=== PATIENT | male | born 1965 | race Caucasian/White ===

== ENCOUNTER → 2017-01-30 | Outpatient (CLI) | payer OTHER ==
[~2017-01-30] MED LIST: MULTIPLE VITAMI1 CAP PO; NO HOME MEDICATIONS; NORCO 325 MG-51 TAB PO
== END ==
LOC: COL.RAD 11:15
DX: R59.1 Generalized enlarged lymph nodes (principal)
CPT/HCPCS: Q9967

== ENCOUNTER → 2017-02-07 | Outpatient (CLI) | payer OTHER ==
[~2017-02-07] VITALS: Ht 170.2 cm; Wt 52.3 kg
[2017-02-07 12:11] VITALS: BP 112/77; PULSE 77
[2017-02-07 13:30] VITALS: BP 94/60; PULSE 64
[2017-02-07 13:45] VITALS: BP 96/74; PULSE 58
== END ==
LOC: COL.RAD 11:47
DX: R59.1 Generalized enlarged lymph nodes (principal)

== ENCOUNTER 2017-02-28 06:48 | Day surgery (SDC) | payer OTHER ==
[~2017-02-28] VITALS: Ht 170.2 cm; Wt 51.4 kg
[2017-02-28 07:40] VITALS: BP 119/69; PULSE 80; TEMP 97.8
[2017-02-28] MEDS ORDERED: NORCO 325 MG-51 TAB PO (07:54)
[2017-02-28] MEDS ORDERED: AMBIEN 10MG10 MG PO (07:55)
[2017-02-28 09:20] VITALS: BP 106/77; PULSE 73
[2017-02-28 09:35] VITALS: BP 107/75; PULSE 65
[2017-02-28 09:45] VITALS: BP 124/80; PULSE 70
== END 2017-02-28 10:30 | disposition home or self-care (01) ==
LOC: SDCO 06:48
DX: C85.18 Unspecified B-cell lymphoma, lymph nodes of multiple sites (principal); F17.210 Nicotine dependence, cigarettes, uncomplicated
CPT/HCPCS: C1788; J0690; J1644; J2250; J2405; J2704; J3010; J7120

== ENCOUNTER 2017-03-27 19:18 | Inpatient (IN) | payer BC ==
[~2017-03-27] VITALS: Ht 170.2 cm; Wt 48.9 kg
[~2017-03-27 19:18] MED LIST changes: +AMBIEN 10MG10 MG PO
[2017-03-27 20:16] LABS: HEMATOCRIT 38.8 % (42.0-52.0); HEMOGLOBIN 13.4 g/dl (13.5-18.0); MEAN CELL VOLUME 88 fl (80.0-100.0); MEAN CORPUSCULAR HEMOGLOBIN 31 pg (27.0-31.0); MEAN CORPUSCULAR HGB CONC 35 g/dl (33.0-37.0); MEAN PLATELET VOLUME 12.6 fl (7.4-10.4); RED BLOOD COUNT 4.39 M/mm3 (4.20-5.60)
[2017-03-27 20:17] LABS: PLATELET COUNT 40 K/mm3 (130-400)
[2017-03-27 20:18] LABS: ADD PATHOLOGY DIFF REVIEW NO
[2017-03-27 20:26] LABS: ADJUSTED CALCIUM 8.9 mg/dL (8.4-10.2); ALANINE AMINOTRANSFERASE 31 U/L (21-72); ALBUMIN 3.4 gm/dL (3.5-5.0); ALKALINE PHOSPHATASE 67 U/L (50-136); ANION GAP 9 mmol/L (7-16); BLOOD UREA NITROGEN 27 mg/dL (9-20); C-REACTIVE PROTEIN 8.4 mg/dL (0.0-0.9); CALCIUM 8.4 mg/dL (8.4-10.2); CARBON DIOXIDE 29 mmol/L (22-30); CHLORIDE 95 mmol/L (98-107); GLUCOSE 297 mg/dL (74-106); POTASSIUM 4.5 mmol/L (3.4-5.0); SODIUM 133 mmol/L (137-145); TOTAL PROTEIN 5.9 gm/dL (6.4-8.2)
[2017-03-27 20:27] LABS: BAND 4 % (0-10); NEUTROPHILS 12 % (42.0-75.2); PLATELET ESTIMATE DECREASED (NORMAL)
[2017-03-27 20:37] LABS: TROPONIN-I < 0.012 ng/mL (0.000-0.034)
[2017-03-27 20:44] LABS: ARTERIAL BLOOD GAS BASE EXCESS 0.8 (-2-2); ARTERIAL BLOOD GAS HCO3 22.2 meq/L (22-26); ARTERIAL BLOOD GAS pH 7.55 (7.35-7.45); OXYHEMOGLOBIN 96.7 %
[2017-03-27 20:45] LABS: ALLEN TEST YES; ALLENS TEST RESULT PASS; ARTERIAL BLOOD GAS PO2 136.4 mmHg (80-100); ATS? YES
[2017-03-27 20:53] LABS: COLLECTION METHOD CLEAN CATCH
[2017-03-27 21:01] LABS: PH 6 (5-8); SQUAMOUS EPITHELIAL None Seen /hpf; URINE APPEARANCE Clear; URINE BACTERIA None Seen /hpf; URINE BILIRUBIN Negative (NEGATIVE); URINE BLOOD 1+ (NEGATIVE); URINE COLOR Yellow; URINE GLUCOSE 3+ (NEGATIVE); URINE KETONE Negative (NEGATIVE); URINE LEUKOCYTE ESTERASE Negative (NEGATIVE); URINE PROTEIN(semi-quant) Negative (NEGATIVE); URINE WBC 0-2 /hpf
[2017-03-27] MEDS ORDERED: ZOVIRAX400 MG PO (21:25)
[2017-03-27] MEDS ORDERED: ZYLOPRIM 300MG300 MG PO (21:26)
[2017-03-27] MEDS ORDERED: COMPAZINE 110 MG/TAB PO (21:26)
[2017-03-27] MEDS ORDERED: LEVAQUIN 5500 MG/TA1 PO (21:26)
[2017-03-27] MEDS ORDERED: MIRALAX PA17 GM/Dose PO (21:27)
[2017-03-27] MEDS ORDERED: MAGIC MOUTH PO (21:28)
[2017-03-27] MEDS ORDERED: PERCOCET 325 MG1 TA2 PO (21:28)
[2017-03-27 23:28] VITALS: BP 116/79; PULSE 80; TEMP 99.3
[2017-03-28] VITALS (7 sets, daily range): BP systolic 98–114; BP diastolic 61–76; PULSE 79–93; TEMP 98.7–100
[2017-03-28 00:16] LABS: BASO % 1.5 % (0.0-2.0); EOS % 3.1 % (0-4.0); GRAN # 0.4 (1.4-6.5); GRAN % 33.8 % (42.2-75.2); HEMATOCRIT 34.8 % (42.0-52.0); HEMOGLOBIN 11.9 g/dl (13.5-18.0); LYMPH # 0.6 (1.2-3.4); LYMPH % 45.4 % (20.0-51.0); MEAN CELL VOLUME 88 fl (80.0-100.0); MEAN CORPUSCULAR HEMOGLOBIN 30 pg (27.0-31.0); MEAN CORPUSCULAR HGB CONC 34 g/dl (33.0-37.0); MONO # 0.2 (0.1-0.6); MONO % 15.4 % (1.7-9.3); RED BLOOD COUNT 3.94 M/mm3 (4.20-5.60)
[2017-03-28 00:17] LABS: PLATELET COUNT 37 K/mm3 (130-400); WHITE BLOOD COUNT 1.3 K/mm3 (4.8-10.8)
[2017-03-28 00:21] LABS: LYMPHOCYTE 60 % (20.0-51.0); TOTAL CELLS COUNTED 25
[2017-03-28 00:32] LABS: INR 1.2 (0.8-3.0); PROTHROMBIN TIME 13.5 SECONDS (9.7-12.8)
[2017-03-28 00:34] LABS: PARTIAL THROMBOPLASTIN TIME 32.9 SECONDS (26.0-37.0)
[2017-03-28 05:46] LABS: MEAN CELL VOLUME 89 fl (80.0-100.0); MEAN CORPUSCULAR HGB CONC 34 g/dl (33.0-37.0); MEAN PLATELET VOLUME 12.9 fl (7.4-10.4); RED BLOOD COUNT 3.61 M/mm3 (4.20-5.60)
[2017-03-28 05:53] LABS: ADJUSTED CALCIUM 8.4 mg/dL (8.4-10.2); ALBUMIN 2.5 gm/dL (3.5-5.0); BILIRUBIN,TOTAL 0.6 mg/dL (0.0-1.0); CALCIUM 7.2 mg/dL (8.4-10.2); POTASSIUM 4.2 mmol/L (3.4-5.0); TOTAL PROTEIN 4.9 gm/dL (6.4-8.2)
[2017-03-28 05:55] LABS: ADD PATHOLOGY DIFF REVIEW NO; HEMATOCRIT 32.2 % (42.0-52.0); MEAN CORPUSCULAR HEMOGLOBIN 30 pg (27.0-31.0); PLATELET COUNT 33 K/mm3 (130-400); WHITE BLOOD COUNT 1.9 K/mm3 (4.8-10.8)
[2017-03-28 06:23] LABS: BAND 26 % (0-10); BASOPHIL 2 % (0-2); DOHLE BODIES PRESENT; EOSINOPHIL 10 % (0-4); LYMPHOCYTE 36 % (20.0-51.0); NEUTROPHILS 14 % (42.0-75.2); TOTAL CELLS COUNTED 100; TOXIC GRANULATION PRESENT
[2017-03-28 06:24] LABS: PLATELET ESTIMATE DECREASED (NORMAL)
[2017-03-29] VITALS (8 sets, daily range): BP systolic 91–119; BP diastolic 52–75; PULSE 78–86; TEMP 97.6–100.3
[2017-03-29 07:56] LABS: MEAN CELL VOLUME 91 fl (80.0-100.0); MEAN CORPUSCULAR HGB CONC 33 g/dl (33.0-37.0); MEAN PLATELET VOLUME 12.7 fl (7.4-10.4); PLATELET COUNT 51 K/mm3 (130-400); RED BLOOD COUNT 3.87 M/mm3 (4.20-5.60); WHITE BLOOD COUNT 10.2 K/mm3 (4.8-10.8)
[2017-03-29 08:00] LABS: ADJUSTED CALCIUM 9.1 mg/dL (8.4-10.2); ALBUMIN 2.5 gm/dL (3.5-5.0); BILIRUBIN,TOTAL 0.5 mg/dL (0.0-1.0); CALCIUM 7.9 mg/dL (8.4-10.2); CREATININE, serum 1.01 mg/dL (0.66-1.25); TOTAL PROTEIN 4.7 gm/dL (6.4-8.2)
[2017-03-29 08:02] LABS: ADD PATHOLOGY DIFF REVIEW NO; HEMATOCRIT 35.3 % (42.0-52.0); HEMOGLOBIN 11.7 g/dl (13.5-18.0); MEAN CORPUSCULAR HEMOGLOBIN 30 pg (27.0-31.0)
[2017-03-29 08:24] LABS: BAND 3 % (0-10); EOSINOPHIL 1 % (0-4); LYMPHOCYTE 20 % (20.0-51.0); METAMYELOCYTE 3 % (0-0); NEUTROPHILS 64 % (42.0-75.2); PLATELET ESTIMATE DECREASED (NORMAL); TOTAL CELLS COUNTED 100
[2017-03-30 00:59] VITALS: BP 103/56; PULSE 73; TEMP 97
[2017-03-30 03:59] VITALS: BP 106/75; PULSE 80; TEMP 98.2
[2017-03-30 07:13] VITALS: BP 128/88; PULSE 78; TEMP 98.4
[2017-03-30 07:18] LABS: ADD PATHOLOGY DIFF REVIEW NO
[2017-03-30 07:31] LABS: RED BLOOD COUNT 3.87 M/mm3 (4.20-5.60)
[2017-03-30 07:32] LABS: MEAN CELL VOLUME 90 fl (80.0-100.0); MEAN CORPUSCULAR HGB CONC 34 g/dl (33.0-37.0); PLATELET COUNT 83 K/mm3 (130-400)
[2017-03-30 07:35] LABS: HEMOGLOBIN 11.9 g/dl (13.5-18.0); MEAN CORPUSCULAR HEMOGLOBIN 31 pg (27.0-31.0); WHITE BLOOD COUNT 21.6 K/mm3 (4.8-10.8)
[2017-03-30 08:40] LABS: BAND 19 % (0-10); LYMPHOCYTE 18 % (20.0-51.0); MYELOCYTE 1 % (0-0); NEUTROPHILS 55 % (42.0-75.2); TOTAL CELLS COUNTED 100
[2017-03-30 08:41] LABS: PLATELET ESTIMATE DECREASED (NORMAL)
[2017-03-30] MEDS ORDERED: TYLENOL 325MG325 MG PO (08:52)
[2017-03-30] MEDS ORDERED: NYSTATIN OR100 MU/ML PO (08:52)
[2017-03-30] MEDS ORDERED: OMNICEF 300MG300 MG PO (08:55)
== END 2017-03-30 11:25 | disposition home or self-care (01) | DRG 871 ==
LOC: COL.ER 19:18 → ICU 21:15 → MEDICAL 03-28 15:11
PROVIDERS: Family Medicine; Internal Medicine; Nurse Practitioner Family
DX: A41.9 Sepsis, unspecified organism (principal); D61.810 Antineoplastic chemotherapy induced pancytopenia; E87.3 Alkalosis; B37.0 Candidal stomatitis; E44.0 Moderate protein-calorie malnutrition; C85.11 Unspecified B-cell lymphoma, lymph nodes of head, face, and neck; Z68.1 Body mass index [BMI] 19.9 or less, adult; R50.81 Fever presenting with conditions classified elsewhere; T45.1X5A Adverse effect of antineoplastic and immunosuppressive drugs, initial encounter
CPT/HCPCS: 99223-AI; 99232-AI; 99239; J0692; J1170; J1644; J1652; J1815; J2405; J3370; J7030; J7050; Q9967

== ENCOUNTER → 2017-04-03 | Outpatient (CLI) | payer BC ==
[~2017-04-03] MED LIST changes: +COMPAZINE 110 MG/TAB PO; +LEVAQUIN 5500 MG/TA1 PO; +MAGIC MOUTH PO; +MIRALAX PA17 GM/Dose PO; +NYSTATIN OR100 MU/ML PO; +OMNICEF 300MG300 MG PO; +PERCOCET 325 MG1 TA2 PO; +TYLENOL 325MG325 MG PO; +ZOVIRAX400 MG PO; +ZYLOPRIM 300MG300 MG PO
[2017-04-03 09:27] LABS: ADD PATHOLOGY DIFF REVIEW NO
[2017-04-03 09:46] LABS: ADJUSTED CALCIUM 9.3 mg/dL (8.4-10.2); ALBUMIN 3.9 gm/dL (3.5-5.0); BILIRUBIN,TOTAL 0.7 mg/dL (0.0-1.0); CALCIUM 9.2 mg/dL (8.4-10.2); CREATININE, serum 1.09 mg/dL (0.66-1.25); POTASSIUM 4.3 mmol/L (3.4-5.0); TOTAL PROTEIN 6.5 gm/dL (6.4-8.2); URIC ACID 4.1 mg/dL (3.5-8.5)
[2017-04-03 09:55] LABS: HEMATOCRIT 41.9 % (42.0-52.0); MEAN CELL VOLUME 91 fl (80.0-100.0); MEAN CORPUSCULAR HEMOGLOBIN 30 pg (27.0-31.0); MEAN CORPUSCULAR HGB CONC 33 g/dl (33.0-37.0); MEAN PLATELET VOLUME 10.2 fl (7.4-10.4); PLATELET COUNT 208 K/mm3 (130-400); RED BLOOD COUNT 4.62 M/mm3 (4.20-5.60)
[2017-04-03 10:22] LABS: BAND 21 % (0-10); LYMPHOCYTE 23 % (20.0-51.0); NEUTROPHILS 52 % (42.0-75.2); PLATELET ESTIMATE NORMAL (NORMAL); TOTAL CELLS COUNTED 100
[2017-04-03 10:24] LABS: WHITE BLOOD COUNT 26.2 K/mm3 (4.8-10.8)
== END ==
LOC: COL.LAB 08:18
PROVIDERS: Internal Medicine
DX: C83.38 Diffuse large B-cell lymphoma, lymph nodes of multiple sites (principal)

== ENCOUNTER → 2017-04-14 | Outpatient (CLI) | payer BC ==
[2017-04-14 13:01] LABS: MEAN CELL VOLUME 91 fl (80.0-100.0); MEAN CORPUSCULAR HEMOGLOBIN 30 pg (27.0-31.0); MEAN CORPUSCULAR HGB CONC 33 g/dl (33.0-37.0); MEAN PLATELET VOLUME 10.1 fl (7.4-10.4); PLATELET COUNT 197 K/mm3 (130-400); RED BLOOD COUNT 4.28 M/mm3 (4.20-5.60); WHITE BLOOD COUNT 13.9 K/mm3 (4.8-10.8)
[2017-04-14 13:02] LABS: ADD PATHOLOGY DIFF REVIEW NO
[2017-04-14 13:12] LABS: ADJUSTED CALCIUM 9.1 mg/dL (8.4-10.2); ALBUMIN 3.9 gm/dL (3.5-5.0); BILIRUBIN,TOTAL 0.7 mg/dL (0.0-1.0); CREATININE, serum 1.24 mg/dL (0.66-1.25); POTASSIUM 4.4 mmol/L (3.4-5.0); TOTAL PROTEIN 6.4 gm/dL (6.4-8.2)
[2017-04-14 13:20] LABS: BAND 1 % (0-10); EOSINOPHIL 2 % (0-4); LYMPHOCYTE 12 % (20.0-51.0); NEUTROPHILS 82 % (42.0-75.2); PLATELET ESTIMATE NORMAL (NORMAL); TOTAL CELLS COUNTED 100
[2017-04-14 13:22] LABS: HYPOCHROMIA 1+
== END ==
LOC: COL.LAB 12:37
PROVIDERS: Internal Medicine
DX: C85.90 Non-Hodgkin lymphoma, unspecified, unspecified site (principal)

== ENCOUNTER 2017-04-22 23:18 | Emergency (ER) | payer BC ==
[~2017-04-22] VITALS: Ht 170.2 cm; Wt 45.5 kg
[2017-04-22 23:55] LABS: MEAN CELL VOLUME 89 fl (80.0-100.0); MEAN CORPUSCULAR HGB CONC 35 g/dl (33.0-37.0); MEAN PLATELET VOLUME 12.6 fl (7.4-10.4); RED BLOOD COUNT 3.84 M/mm3 (4.20-5.60)
[2017-04-23] LABS: HEMATOCRIT 34.2 % (42.0-52.0); HEMOGLOBIN 11.8 g/dl (13.5-18.0); MEAN CORPUSCULAR HEMOGLOBIN 31 pg (27.0-31.0); PLATELET COUNT 41 K/mm3 (130-400); WHITE BLOOD COUNT 0.4 K/mm3 (4.8-10.8)
[2017-04-23 00:01] LABS: ADD PATHOLOGY DIFF REVIEW NO
[2017-04-23 00:02] LABS: ADJUSTED CALCIUM 8.7 mg/dL (8.4-10.2); ALANINE AMINOTRANSFERASE 35 U/L (21-72); ALBUMIN 3.2 gm/dL (3.5-5.0); ALKALINE PHOSPHATASE 65 U/L (50-136); ANION GAP 9 mmol/L (7-16); BILIRUBIN,TOTAL 1.6 mg/dL (0.0-1.0); BLOOD UREA NITROGEN 26 mg/dL (9-20); C-REACTIVE PROTEIN 7.4 mg/dL (0.0-0.9); CALCIUM 8.1 mg/dL (8.4-10.2); CARBON DIOXIDE 27 mmol/L (22-30); CHLORIDE 95 mmol/L (98-107); CREATININE, serum 1.09 mg/dL (0.66-1.25); GLUCOSE 267 mg/dL (74-106); LIPASE 11 U/L (23-300); MAGNESIUM 1.7 mg/dL (1.6-2.3); PHOSPHOROUS 2.2 mg/dL (2.5-4.5); POTASSIUM 3.8 mmol/L (3.4-5.0); SODIUM 130 mmol/L (137-145); TOTAL PROTEIN 5.6 gm/dL (6.4-8.2)
[2017-04-23 00:05] LABS: INFLUENZA A NEGATIVE; INFLUENZA B NEGATIVE
[2017-04-23 00:13] LABS: TROPONIN-I < 0.012 ng/mL (0.000-0.034)
[2017-04-23 00:36] LABS: EOSINOPHIL 8 % (0-4); LYMPHOCYTE 58 % (20.0-51.0); NEUTROPHILS 16 % (42.0-75.2); TOTAL CELLS COUNTED 100
[2017-04-23 00:38] LABS: ANISOCYTOSIS 3+; POLYCHROMASIA 2+
[2017-04-23 00:39] LABS: HYPOCHROMIA 2+
[2017-04-23 01:22] LABS: COLLECTION METHOD CLEAN CATCH
[2017-04-23 01:39] LABS: MUCOUS Present /lpf; PH 5 (5-8); SQUAMOUS EPITHELIAL 0-2 /hpf; URINE APPEARANCE Clear; URINE BACTERIA None Seen /hpf; URINE BILIRUBIN Negative (NEGATIVE); URINE BLOOD 1+ (NEGATIVE); URINE COLOR Amber; URINE GLUCOSE 3+ (NEGATIVE); URINE KETONE Trace (NEGATIVE); URINE LEUKOCYTE ESTERASE Negative (NEGATIVE); URINE PROTEIN(semi-quant) 2+ (NEGATIVE); URINE UROBILINOGEN >=4.0 mg/dL (NEGATIVE); URINE WBC 0-2 /hpf
[2017-04-23 03:08] VITALS: BP 99/65; PULSE 96; TEMP 99.1
== END 2017-04-23 03:11 | disposition short-term general hospital (02) ==
LOC: COL.ER 23:18
PROVIDERS: Emergency Medicine
DX: D70.9 Neutropenia, unspecified (principal); R50.81 Fever presenting with conditions classified elsewhere; C85.10 Unspecified B-cell lymphoma, unspecified site; K37 Unspecified appendicitis
CPT/HCPCS: J0692; J1450; J2405; J3370; J7030; J7050; Q9967

== ENCOUNTER → 2017-05-01 | Outpatient (CLI) | payer BC | LOC: COL.LAB 15:47 | DX: E10.9 Type 1 diabetes mellitus without complications (principal) ==

== ENCOUNTER → 2017-05-05 | Outpatient (CLI) | payer BC ==
[2017-05-05 12:42] LABS: ADD PATHOLOGY DIFF REVIEW NO
[2017-05-05 12:48] LABS: HEMATOCRIT 39.4 % (42.0-52.0); HEMOGLOBIN 13.2 g/dl (13.5-18.0); MEAN CELL VOLUME 92 fl (80.0-100.0); MEAN CORPUSCULAR HEMOGLOBIN 31 pg (27.0-31.0); MEAN CORPUSCULAR HGB CONC 34 g/dl (33.0-37.0); MEAN PLATELET VOLUME 9.5 fl (7.4-10.4); PLATELET COUNT 276 K/mm3 (130-400); RED BLOOD COUNT 4.28 M/mm3 (4.20-5.60)
[2017-05-05 12:53] LABS: WHITE BLOOD COUNT 22.1 K/mm3 (4.8-10.8)
[2017-05-05 12:57] LABS: ADJUSTED CALCIUM 9.4 mg/dL (8.4-10.2); ALBUMIN 4.5 gm/dL (3.5-5.0); BILIRUBIN,TOTAL 0.6 mg/dL (0.0-1.0); CALCIUM 9.8 mg/dL (8.4-10.2); CREATININE, serum 1.19 mg/dL (0.66-1.25); POTASSIUM 4.2 mmol/L (3.4-5.0); TOTAL PROTEIN 7.2 gm/dL (6.4-8.2)
[2017-05-05 13:20] LABS: BAND 16 % (0-10); LYMPHOCYTE 19 % (20.0-51.0); METAMYELOCYTE 2 % (0-0); NEUTROPHILS 61 % (42.0-75.2); TOTAL CELLS COUNTED 100
[2017-05-05 13:21] LABS: ANISOCYTOSIS 1+; PLATELET ESTIMATE NORMAL (NORMAL)
== END ==
LOC: COL.LAB 12:23
PROVIDERS: Internal Medicine
DX: C83.38 Diffuse large B-cell lymphoma, lymph nodes of multiple sites (principal)

== ENCOUNTER → 2017-05-14 | Outpatient (CLI) | payer BC, OTHER ==
[2017-05-14 12:37] LABS: HEMATOCRIT 39.1 % (42.0-52.0); HEMOGLOBIN 13.1 g/dl (13.5-18.0); MEAN CELL VOLUME 93 fl (80.0-100.0); MEAN CORPUSCULAR HEMOGLOBIN 31 pg (27.0-31.0); MEAN CORPUSCULAR HGB CONC 34 g/dl (33.0-37.0); MEAN PLATELET VOLUME 10.6 fl (7.4-10.4); PLATELET COUNT 198 K/mm3 (130-400); RED BLOOD COUNT 4.21 M/mm3 (4.20-5.60); WHITE BLOOD COUNT 14.6 K/mm3 (4.8-10.8)
[2017-05-14 12:42] LABS: ADJUSTED CALCIUM 9.3 mg/dL (8.4-10.2); ALBUMIN 4.1 gm/dL (3.5-5.0); BILIRUBIN,TOTAL 0.7 mg/dL (0.0-1.0); CALCIUM 9.4 mg/dL (8.4-10.2); CREATININE, serum 1.06 mg/dL (0.66-1.25); POTASSIUM 4.7 mmol/L (3.4-5.0); TOTAL PROTEIN 6.7 gm/dL (6.4-8.2)
[2017-05-14 12:43] LABS: ADD PATHOLOGY DIFF REVIEW NO
[2017-05-14 13:14] LABS: BAND 1 % (0-10); LYMPHOCYTE 15 % (20.0-51.0); METAMYELOCYTE 1 % (0-0); NEUTROPHILS 80 % (42.0-75.2); PLATELET ESTIMATE NORMAL (NORMAL); TOTAL CELLS COUNTED 100
== END ==
LOC: COL.LAB 11:58
PROVIDERS: Internal Medicine
DX: C83.38 Diffuse large B-cell lymphoma, lymph nodes of multiple sites (principal)

== ENCOUNTER → 2017-05-26 | Outpatient (CLI) | payer BC, OTHER ==
[2017-05-26 12:50] LABS: MEAN CELL VOLUME 95 fl (80.0-100.0); MEAN CORPUSCULAR HGB CONC 33 g/dl (33.0-37.0); PLATELET COUNT 87 K/mm3 (130-400)
[2017-05-26 12:54] LABS: HEMATOCRIT 35.2 % (42.0-52.0); HEMOGLOBIN 11.7 g/dl (13.5-18.0); MEAN CORPUSCULAR HEMOGLOBIN 32 pg (27.0-31.0)
[2017-05-26 13:01] LABS: ALBUMIN 3.6 gm/dL (3.5-5.0); BILIRUBIN,TOTAL 0.3 mg/dL (0.0-1.0); CALCIUM 9.2 mg/dL (8.4-10.2); CREATININE, serum 0.95 mg/dL (0.66-1.25); POTASSIUM 4.1 mmol/L (3.4-5.0); TOTAL PROTEIN 6.1 gm/dL (6.4-8.2)
[2017-05-26 13:26] LABS: BAND 16 % (0-10); LYMPHOCYTE 16 % (20.0-51.0); NEUTROPHILS 65 % (42.0-75.2)
[2017-05-26 13:31] LABS: PLATELET ESTIMATE DECREASED (NORMAL)
[2017-05-26 13:36] LABS: DOHLE BODIES PRESENT
[2017-05-26 13:39] LABS: TOXIC GRANULATION PRESENT
== END ==
LOC: COL.LAB 12:11
PROVIDERS: Internal Medicine
DX: C83.38 Diffuse large B-cell lymphoma, lymph nodes of multiple sites (principal)

== ENCOUNTER → 2017-06-03 | Outpatient (CLI) | payer BC, OTHER ==
[2017-06-03 13:19] LABS: HEMOGLOBIN 12.2 g/dl (13.5-18.0); MEAN CELL VOLUME 96 fl (80.0-100.0); MEAN CORPUSCULAR HEMOGLOBIN 32 pg (27.0-31.0); MEAN CORPUSCULAR HGB CONC 33 g/dl (33.0-37.0); MEAN PLATELET VOLUME 9.8 fl (7.4-10.4); PLATELET COUNT 190 K/mm3 (130-400); RED BLOOD COUNT 3.83 M/mm3 (4.20-5.60)
[2017-06-03 13:27] LABS: HEMATOCRIT 36.9 % (42.0-52.0)
[2017-06-03 13:31] LABS: ALBUMIN 4.1 gm/dL (3.5-5.0); BILIRUBIN,TOTAL 0.4 mg/dL (0.0-1.0); CALCIUM 9.3 mg/dL (8.4-10.2); CREATININE, serum 1.06 mg/dL (0.66-1.25); POTASSIUM 4.2 mmol/L (3.4-5.0); TOTAL PROTEIN 6.8 gm/dL (6.4-8.2)
[2017-06-03 13:53] LABS: ANISOCYTOSIS 1+; BAND 6 % (0-10); HYPOCHROMIA 1+; LYMPHOCYTE 21 % (20.0-51.0); NEUTROPHILS 71 % (42.0-75.2); PLATELET ESTIMATE NORMAL (NORMAL)
== END ==
LOC: COL.LAB 12:59
PROVIDERS: Internal Medicine
DX: C83.38 Diffuse large B-cell lymphoma, lymph nodes of multiple sites (principal)

== ENCOUNTER → 2017-06-09 | Outpatient (CLI) | payer BC, OTHER ==
[2017-06-09 12:27] LABS: MEAN CELL VOLUME 97 fl (80.0-100.0); MEAN CORPUSCULAR HGB CONC 33 g/dl (33.0-37.0); MEAN PLATELET VOLUME 10.7 fl (7.4-10.4); PLATELET COUNT 130 K/mm3 (130-400); RED BLOOD COUNT 3.59 M/mm3 (4.20-5.60); REDCELL DISTRIBUTION WIDTH-CV 15.8 % (11.5-14.5)
[2017-06-09 12:42] LABS: ALBUMIN 3.9 gm/dL (3.5-5.0); BILIRUBIN,TOTAL 0.4 mg/dL (0.0-1.0); CALCIUM 9.6 mg/dL (8.4-10.2); CREATININE, serum 0.96 mg/dL (0.66-1.25); POTASSIUM 4.4 mmol/L (3.4-5.0); TOTAL PROTEIN 6.5 gm/dL (6.4-8.2)
[2017-06-09 13:08] LABS: HEMATOCRIT 34.7 % (42.0-52.0); HEMOGLOBIN 11.6 g/dl (13.5-18.0); MEAN CORPUSCULAR HEMOGLOBIN 32 pg (27.0-31.0)
[2017-06-09 13:13] LABS: BAND 37 % (0-10); NEUTROPHILS 62 % (42.0-75.2)
[2017-06-09 13:15] LABS: DOHLE BODIES PRESENT; TOXIC GRANULATION PRESENT
[2017-06-09 13:16] LABS: PLATELET ESTIMATE DECREASED (NORMAL)
== END ==
LOC: COL.LAB 12:00
PROVIDERS: Internal Medicine
DX: C83.38 Diffuse large B-cell lymphoma, lymph nodes of multiple sites (principal)

== ENCOUNTER → 2017-06-18 | Outpatient (CLI) | payer BC ==
[2017-06-18 14:46] LABS: HEMATOCRIT 39.6 % (42.0-52.0); HEMOGLOBIN 12.9 g/dl (13.5-18.0); MEAN CELL VOLUME 99 fl (80.0-100.0); MEAN CORPUSCULAR HEMOGLOBIN 32 pg (27.0-31.0); MEAN CORPUSCULAR HGB CONC 33 g/dl (33.0-37.0); MEAN PLATELET VOLUME 10.4 fl (7.4-10.4); PLATELET COUNT 99 K/mm3 (130-400); RED BLOOD COUNT 4.02 M/mm3 (4.20-5.60); REDCELL DISTRIBUTION WIDTH-CV 16.4 % (11.5-14.5)
[2017-06-18 14:58] LABS: ALBUMIN 4.1 gm/dL (3.5-5.0); BILIRUBIN,TOTAL 0.3 mg/dL (0.0-1.0); CALCIUM 9.6 mg/dL (8.4-10.2); CREATININE, serum 1.07 mg/dL (0.66-1.25); POTASSIUM 4.1 mmol/L (3.4-5.0); TOTAL PROTEIN 6.8 gm/dL (6.4-8.2)
[2017-06-18 15:07] LABS: BAND 20 % (0-10); LYMPHOCYTE 12 % (20.0-51.0); MYELOCYTE 5 % (0-0); NEUTROPHILS 56 % (42.0-75.2)
[2017-06-18 15:08] LABS: PLATELET ESTIMATE DECREASED (NORMAL); TOXIC GRANULATION PRESENT
[2017-06-18 15:09] LABS: POLYCHROMASIA 1+
[2017-06-18 15:11] LABS: ANISOCYTOSIS 1+
== END ==
LOC: COL.LAB 13:53
PROVIDERS: Internal Medicine
DX: C83.38 Diffuse large B-cell lymphoma, lymph nodes of multiple sites (principal)

== ENCOUNTER → 2017-06-24 | Outpatient (CLI) | payer BC ==
[2017-06-24 10:49] LABS: HEMOGLOBIN 12.1 g/dl (13.5-18.0); MEAN CELL VOLUME 99 fl (80.0-100.0); MEAN CORPUSCULAR HEMOGLOBIN 33 pg (27.0-31.0); MEAN CORPUSCULAR HGB CONC 33 g/dl (33.0-37.0); MEAN PLATELET VOLUME 10.3 fl (7.4-10.4); PLATELET COUNT 155 K/mm3 (130-400); REDCELL DISTRIBUTION WIDTH-CV 15.9 % (11.5-14.5)
[2017-06-24 10:53] LABS: HEMATOCRIT 36.6 % (42.0-52.0)
[2017-06-24 11:04] LABS: ALBUMIN 3.6 gm/dL (3.5-5.0); BILIRUBIN,TOTAL 0.4 mg/dL (0.0-1.0); CALCIUM 8.7 mg/dL (8.4-10.2); CREATININE, serum 1.7 mg/dL (0.66-1.25); POTASSIUM 4.7 mmol/L (3.4-5.0); TOTAL PROTEIN 6.1 gm/dL (6.4-8.2)
[2017-06-24 11:48] LABS: BAND 15 % (0-10); LYMPHOCYTE 9 % (20.0-51.0); METAMYELOCYTE 1 % (0-0); MYELOCYTE 2 % (0-0); NEUTROPHILS 68 % (42.0-75.2); PLATELET ESTIMATE NORMAL (NORMAL)
== END ==
LOC: COL.LAB 10:19
PROVIDERS: Internal Medicine
DX: C83.38 Diffuse large B-cell lymphoma, lymph nodes of multiple sites (principal)

== ENCOUNTER → 2017-07-10 | Outpatient (CLI) | payer BC ==
[2017-07-10 12:03] LABS: HEMATOCRIT 38.7 % (42.0-52.0); HEMOGLOBIN 12.9 g/dl (13.5-18.0); MEAN CELL VOLUME 98 fl (80.0-100.0); MEAN CORPUSCULAR HEMOGLOBIN 33 pg (27.0-31.0); MEAN CORPUSCULAR HGB CONC 33 g/dl (33.0-37.0); MEAN PLATELET VOLUME 10.4 fl (7.4-10.4); PLATELET COUNT 142 K/mm3 (130-400); RED BLOOD COUNT 3.94 M/mm3 (4.20-5.60); REDCELL DISTRIBUTION WIDTH-CV 14.8 % (11.5-14.5)
[2017-07-10 12:17] LABS: ALBUMIN 3.7 gm/dL (3.5-5.0); BILIRUBIN,TOTAL 0.3 mg/dL (0.0-1.0); CREATININE, serum 1.01 mg/dL (0.66-1.25); POTASSIUM 4.6 mmol/L (3.4-5.0); TOTAL PROTEIN 6.2 gm/dL (6.4-8.2)
[2017-07-10 12:32] LABS: BAND 10 % (0-10); BASOPHIL 1 % (0-2); LYMPHOCYTE 20 % (20.0-51.0); METAMYELOCYTE 2 % (0-0); NEUTROPHILS 62 % (42.0-75.2); PLATELET ESTIMATE DECREASED (NORMAL); TOXIC GRANULATION PRESENT
== END ==
LOC: COL.LAB 11:41
PROVIDERS: Internal Medicine
DX: C85.90 Non-Hodgkin lymphoma, unspecified, unspecified site (principal)

== ENCOUNTER → 2017-07-15 | Outpatient (CLI) | payer BC ==
[2017-07-15 10:44] LABS: HEMOGLOBIN 12.2 g/dl (13.5-18.0); MEAN CELL VOLUME 98 fl (80.0-100.0); MEAN CORPUSCULAR HEMOGLOBIN 33 pg (27.0-31.0); MEAN CORPUSCULAR HGB CONC 33 g/dl (33.0-37.0); MEAN PLATELET VOLUME 10.3 fl (7.4-10.4); PLATELET COUNT 157 K/mm3 (130-400); RED BLOOD COUNT 3.75 M/mm3 (4.20-5.60); REDCELL DISTRIBUTION WIDTH-CV 14.6 % (11.5-14.5)
[2017-07-15 10:45] LABS: HEMATOCRIT 36.9 % (42.0-52.0)
[2017-07-15 10:58] LABS: ALBUMIN 3.3 gm/dL (3.5-5.0); BILIRUBIN,TOTAL 0.2 mg/dL (0.0-1.0); CALCIUM 8.9 mg/dL (8.4-10.2); CREATININE, serum 0.95 mg/dL (0.66-1.25); POTASSIUM 4.2 mmol/L (3.4-5.0); TOTAL PROTEIN 5.8 gm/dL (6.4-8.2)
[2017-07-15 11:16] LABS: BAND 5 % (0-10); BASOPHIL 1 % (0-2); LYMPHOCYTE 15 % (20.0-51.0); NEUTROPHILS 74 % (42.0-75.2); PLATELET ESTIMATE NORMAL (NORMAL)
== END ==
LOC: COL.LAB 10:11
PROVIDERS: Internal Medicine
DX: C83.38 Diffuse large B-cell lymphoma, lymph nodes of multiple sites (principal)

== ENCOUNTER → 2017-07-22 | Outpatient (CLI) | payer BC, OTHER ==
[2017-07-22 12:34] LABS: HEMOGLOBIN 12.9 g/dl (13.5-18.0); MEAN CELL VOLUME 97 fl (80.0-100.0); MEAN CORPUSCULAR HEMOGLOBIN 33 pg (27.0-31.0); MEAN CORPUSCULAR HGB CONC 34 g/dl (33.0-37.0); MEAN PLATELET VOLUME 11.4 fl (7.4-10.4); PLATELET COUNT 73 K/mm3 (130-400); RED BLOOD COUNT 3.91 M/mm3 (4.20-5.60); REDCELL DISTRIBUTION WIDTH-CV 14.4 % (11.5-14.5)
[2017-07-22 12:49] LABS: ALBUMIN 3.6 gm/dL (3.5-5.0); BILIRUBIN,TOTAL 0.4 mg/dL (0.0-1.0); CALCIUM 8.6 mg/dL (8.4-10.2); CREATININE, serum 1.1 mg/dL (0.66-1.25); POTASSIUM 3.7 mmol/L (3.4-5.0); TOTAL PROTEIN 6.1 gm/dL (6.4-8.2)
[2017-07-22 14:52] LABS: BAND 7 % (0-10); LYMPHOCYTE 11 % (20.0-51.0); NEUTROPHILS 82 % (42.0-75.2); PLATELET ESTIMATE DECREASED (NORMAL)
== END ==
LOC: COL.LAB 12:14
PROVIDERS: Internal Medicine
DX: C83.38 Diffuse large B-cell lymphoma, lymph nodes of multiple sites (principal)

== ENCOUNTER → 2017-08-07 | Outpatient (CLI) | payer BC, OTHER ==
[2017-08-07 12:42] LABS: HEMATOCRIT 40.1 % (42.0-52.0); HEMOGLOBIN 13.6 g/dl (13.5-18.0); MEAN CELL VOLUME 97 fl (80.0-100.0); MEAN CORPUSCULAR HEMOGLOBIN 33 pg (27.0-31.0); MEAN CORPUSCULAR HGB CONC 34 g/dl (33.0-37.0); MEAN PLATELET VOLUME 9.8 fl (7.4-10.4); PLATELET COUNT 156 K/mm3 (130-400); RED BLOOD COUNT 4.13 M/mm3 (4.20-5.60); REDCELL DISTRIBUTION WIDTH-CV 13.7 % (11.5-14.5)
[2017-08-07 12:58] LABS: ALBUMIN 3.5 gm/dL (3.5-5.0); BILIRUBIN,TOTAL 0.5 mg/dL (0.0-1.0); CALCIUM 9.2 mg/dL (8.4-10.2); CREATININE, serum 1.1 mg/dL (0.66-1.25); POTASSIUM 3.9 mmol/L (3.4-5.0); TOTAL PROTEIN 6.3 gm/dL (6.4-8.2)
[2017-08-07 13:38] LABS: BAND 3 % (0-10); EOSINOPHIL 1 % (0-4); LYMPHOCYTE 11 % (20.0-51.0); MYELOCYTE 1 % (0-0); NEUTROPHILS 79 % (42.0-75.2)
[2017-08-07 13:40] LABS: ANISOCYTOSIS 1+; PLATELET ESTIMATE NORMAL (NORMAL)
== END ==
LOC: COL.LAB 12:19
PROVIDERS: Internal Medicine
DX: C85.90 Non-Hodgkin lymphoma, unspecified, unspecified site (principal)

== ENCOUNTER → 2017-08-18 | Outpatient (CLI) | payer BC, OTHER ==
[2017-08-18 16:39] LABS: HEMATOCRIT 43.1 % (42.0-52.0); HEMOGLOBIN 14.5 g/dl (13.5-18.0); MEAN CELL VOLUME 96 fl (80.0-100.0); MEAN CORPUSCULAR HEMOGLOBIN 32 pg (27.0-31.0); MEAN CORPUSCULAR HGB CONC 34 g/dl (33.0-37.0); MEAN PLATELET VOLUME 10.1 fl (7.4-10.4); PLATELET COUNT 162 K/mm3 (130-400); RED BLOOD COUNT 4.47 M/mm3 (4.20-5.60)
[2017-08-18 16:44] LABS: ALBUMIN 4.1 gm/dL (3.5-5.0); BILIRUBIN,TOTAL 0.6 mg/dL (0.0-1.0); CALCIUM 9.2 mg/dL (8.4-10.2); CREATININE, serum 1.11 mg/dL (0.66-1.25); POTASSIUM 4.2 mmol/L (3.4-5.0); TOTAL PROTEIN 7.3 gm/dL (6.4-8.2)
[2017-08-18 17:21] LABS: BAND 2 % (0-10); EOSINOPHIL 5 % (0-4); LYMPHOCYTE 22 % (20.0-51.0); METAMYELOCYTE 1 % (0-0); NEUTROPHILS 67 % (42.0-75.2); PLATELET ESTIMATE NORMAL (NORMAL)
== END ==
LOC: COL.LAB 16:10
PROVIDERS: Internal Medicine
DX: C83.38 Diffuse large B-cell lymphoma, lymph nodes of multiple sites (principal)

== ENCOUNTER → 2017-09-12 | Outpatient (CLI) | payer BC, OTHER ==
[2017-09-12 15:42] LABS: CHOLESTEROL RISK RATIO 2.9
[2017-09-12 16:13] LABS: PSA-TOTAL 0.28 ng/mL (0-4)
== END ==
LOC: COL.LAB 14:53
PROVIDERS: Family Medicine
DX: Z12.5 Encounter for screening for malignant neoplasm of prostate (principal); Z13.6 Encounter for screening for cardiovascular disorders; E10.9 Type 1 diabetes mellitus without complications
CPT/HCPCS: G0103

== ENCOUNTER → 2017-11-18 | Outpatient (CLI) | payer BC ==
[2017-11-18 17:58] LABS: HEMATOCRIT 46.3 % (42.0-52.0); HEMOGLOBIN 15.4 g/dl (13.5-18.0); MEAN CELL VOLUME 89 fl (80.0-100.0); MEAN CORPUSCULAR HEMOGLOBIN 30 pg (27.0-31.0); MEAN CORPUSCULAR HGB CONC 33 g/dl (33.0-37.0); MEAN PLATELET VOLUME 10.4 fl (7.4-10.4); PLATELET COUNT 138 K/mm3 (130-400); RED BLOOD COUNT 5.22 M/mm3 (4.20-5.60); REDCELL DISTRIBUTION WIDTH-CV 12.6 % (11.5-14.5)
[2017-11-18 18:03] LABS: ALBUMIN 4.8 gm/dL (3.5-5.0); BILIRUBIN,TOTAL 0.8 mg/dL (0.0-1.0); CALCIUM 9.9 mg/dL (8.4-10.2); CREATININE, serum 1.76 mg/dL (0.66-1.25); POTASSIUM 4.1 mmol/L (3.4-5.0); TOTAL PROTEIN 8.2 gm/dL (6.4-8.2)
[2017-11-18 18:44] LABS: BAND 1 % (0-10); EOSINOPHIL 2 % (0-4); LYMPHOCYTE 35 % (20.0-51.0); NEUTROPHILS 61 % (42.0-75.2); PLATELET ESTIMATE NORMAL (NORMAL)
== END ==
LOC: COL.LAB 17:14
PROVIDERS: Internal Medicine
DX: C83.38 Diffuse large B-cell lymphoma, lymph nodes of multiple sites (principal)

== ENCOUNTER → 2017-12-02 | Outpatient (CLI) | payer BC ==
[2017-12-02 14:52] LABS: BASO # 0.1 (0.0-0.2); BASO % 0.8 % (0.0-2.0); EOS # 0.1 (0.0-0.7); EOS % 1.1 % (0-4.0); GRAN # 5.9 (1.4-6.5); GRAN % 63.4 % (42.2-75.2); HEMATOCRIT 47.7 % (42.0-52.0); HEMOGLOBIN 15.9 g/dl (13.5-18.0); LYMPH # 2.8 (1.2-3.4); LYMPH % 29.8 % (20.0-51.0); MEAN CELL VOLUME 88 fl (80.0-100.0); MEAN CORPUSCULAR HEMOGLOBIN 29 pg (27.0-31.0); MEAN CORPUSCULAR HGB CONC 33 g/dl (33.0-37.0); MEAN PLATELET VOLUME 10.3 fl (7.4-10.4); MONO # 0.4 (0.1-0.6); MONO % 4.5 % (1.7-9.3); PLATELET COUNT 152 K/mm3 (130-400); REDCELL DISTRIBUTION WIDTH-CV 13.2 % (11.5-14.5)
[2017-12-02 15:02] LABS: ALBUMIN 5.2 gm/dL (3.5-5.0); BILIRUBIN,TOTAL 1.1 mg/dL (0.0-1.0); CALCIUM 10.3 mg/dL (8.4-10.2); CREATININE, serum 2.23 mg/dL (0.66-1.25); POTASSIUM 3.8 mmol/L (3.4-5.0); TOTAL PROTEIN 8.9 gm/dL (6.4-8.2)
== END ==
LOC: COL.LAB 14:01
PROVIDERS: Internal Medicine
DX: C85.90 Non-Hodgkin lymphoma, unspecified, unspecified site (principal)

== ENCOUNTER → 2017-12-08 | Outpatient (CLI) | payer BC, OTHER ==
[2017-12-08 11:21] LABS: HEMATOCRIT 43.5 % (42.0-52.0); HEMOGLOBIN 14.6 g/dl (13.5-18.0); MEAN CELL VOLUME 88 fl (80.0-100.0); MEAN CORPUSCULAR HEMOGLOBIN 30 pg (27.0-31.0); MEAN CORPUSCULAR HGB CONC 34 g/dl (33.0-37.0); MEAN PLATELET VOLUME 10.3 fl (7.4-10.4); PLATELET COUNT 145 K/mm3 (130-400); RED BLOOD COUNT 4.95 M/mm3 (4.20-5.60); REDCELL DISTRIBUTION WIDTH-CV 13.2 % (11.5-14.5)
[2017-12-08 11:37] LABS: ALBUMIN 4.6 gm/dL (3.5-5.0); BILIRUBIN,TOTAL 1.1 mg/dL (0.0-1.0); CALCIUM 9.7 mg/dL (8.4-10.2); CREATININE, serum 1.93 mg/dL (0.66-1.25); POTASSIUM 4.1 mmol/L (3.4-5.0); TOTAL PROTEIN 7.7 gm/dL (6.4-8.2)
[2017-12-08 11:45] LABS: BAND 1 % (0-10); EOSINOPHIL 1 % (0-4); LYMPHOCYTE 29 % (20.0-51.0); NEUTROPHILS 65 % (42.0-75.2)
[2017-12-08 11:46] LABS: PLATELET ESTIMATE DECREASED (NORMAL)
== END ==
LOC: COL.LAB 12-05 14:56
PROVIDERS: Internal Medicine
DX: C85.90 Non-Hodgkin lymphoma, unspecified, unspecified site (principal)

== ENCOUNTER → 2017-12-26 | Outpatient (CLI) | payer BC ==
[2017-12-26 17:05] LABS: ALBUMIN 4.8 gm/dL (3.5-5.0); BILIRUBIN,TOTAL 1.3 mg/dL (0.0-1.0); CALCIUM 9.5 mg/dL (8.4-10.2); CREATININE, serum 1.86 mg/dL (0.66-1.25); POTASSIUM 3.8 mmol/L (3.4-5.0)
== END ==
LOC: COL.LAB 15:42
PROVIDERS: Internal Medicine
DX: C83.38 Diffuse large B-cell lymphoma, lymph nodes of multiple sites (principal)